=== PATIENT | female | born 1985 ===

== ENCOUNTER 2022-03-18 14:44 | Emergency (ER) | payer OTHER ==
[~2022-03-18] VITALS: Ht 167.6 cm; Wt 93.6 kg
[2022-03-18 14:54] VITALS: TEMP 98.5
[2022-03-18 16:23] VITALS: BP 125/70; PULSE 70
== END 2022-03-18 16:26 | disposition home or self-care (01) ==
LOC: COL.ER 14:44
DX: S90.852A Superficial foreign body, left foot, initial encounter (principal); S90.851A Superficial foreign body, right foot, initial encounter; Z28.311 Partially vaccinated for COVID-19; W25.XXXA Contact with sharp glass, initial encounter

== ENCOUNTER 2022-03-28 19:42 | Emergency (ER) | payer OTHER ==
[~2022-03-28] VITALS: Ht 167.6 cm; Wt 93.6 kg
[2022-03-28 19:57] VITALS: TEMP 97.2
[2022-03-28 20:52] VITALS: BP 120/68; PULSE 82
== END 2022-03-28 20:53 | disposition home or self-care (01) ==
LOC: COL.ER 19:42
DX: S61.213A Laceration without foreign body of left middle finger without damage to nail, initial encounter (principal); Z23 Encounter for immunization; Z28.310 Unvaccinated for COVID-19; W26.0XXA Contact with knife, initial encounter

== ENCOUNTER → 2022-06-02 | Outpatient (CLI) | payer OTHER | LOC: MC.RAD 09:58 | DX: N63.20 Unspecified lump in the left breast, unspecified quadrant (principal) ==